=== PATIENT | male | born 1990 | race Caucasian/White ===

== ENCOUNTER 2018-10-18 10:24 | Emergency (ER) | payer SELFPAY ==
[2018-10-18 12:58] LABS: Absolute Lymphocytes (CBC) 1.2 K/uL (0.7-4.9); Absolute Monocytes 0.6 K/uL (0.1-1.3); Absolute Neutrophil 5.7 K/uL (1.8-8.0); Basophils % 0.6 % (0-1.3); Eosinophils % 0.1 % (0-4.4); Hematocrit 43.3 % (39.6-49.0); Lymphocytes % 15.9 % (15.3-44.8); Monocytes % 7.9 % (3.3-12.3); RBC Red Blood Cell Count 4.95 M/uL (4.33-5.43)
[2018-10-18 12:59] LABS: ALT/SGPT 25 U/L (12-78); AST/SGOT 18 U/L (15-37); Albumin 3.9 g/dL (3.4-5.0); Alkaline Phosphatase 88 U/L (45-117); BUN Blood Urea Nitrogen 11 mg/dL (7-18); Bicarbonate 25 mmol/L (21-32); Bilirubin Direct 0.2 mg/dL (0-0.2); Bilirubin Total 0.4 mg/dL (0.2-1.0); Glucose Level 106 mg/dL (74-106); Lipase 67 U/L (73-393); Potassium 3.6 mmol/L (3.5-5.1); Protein, Total 7.2 g/dL (6.4-8.2); Sodium Level 143 mmol/L (136-145)
[2018-10-18] MEDS ORDERED: PANTOPRAZOLE 40 MG INJ ONE (13:00)
--- NOTE | 2018-10-18 13:25 | RAD REPORT ---
EXAM DESCRIPTION: CT - Abdomen Pelvis Wo Contrast - 10/18/2018 1:20 pm CLINICAL HISTORY: Abdominal pain. no iv or oral contrast;Abd pain COMPARISON: No comparisons TECHNIQUE: CT imaging of the abdomen and pelvis was performed without contrast. Solid organ, bowel a nd vascular assessment is limited due to lack of IV and oral contrast. All CT scans are performed using dose optimization technique as appropriate and may include automated exposure control or mA/KV adjustment according to patient size. FINDINGS: The lower lung gifford are clear. The liver, spleen, pancreas, adrenal glands and kidneys are within normal limits for a limited non-co ntrast examination. No bowel obstruction, free air, free fluid or abscess. The appendix is normal. The osseous structures are within normal limits. IMPRESSION: No acute intra-abdominal or pelvic findings. A limited non-contrast examination was performed as detailed.
[2018-10-18] MEDS ORDERED: MAGNE/ALUM HYDROXD 30 ML UCUP ONE (13:37)
--- NOTE | 2018-10-18 13:37 | ER ---
Nurse's Notes [facility] Name: Tremaine Roberson Age: 28 yrs Sex: Male : 1990 Arrival Date: 10/18/2018 Time: 10:27 Bed 5 Private MD: Diagnosis: Epigastric pain;Gastritis, unspecified Presentation: 10/18 10:37 Presenting complaint: Patient states: hemoptysis, bright yellow vomit x 4 days, abd sv pain. Transition of care: patient was not received from another setting of care. Onset of symptoms was October 14, 2018. Care prior to arrival: None. 10:37 Method Of Arrival: Ambulatory sv 10:37 Acuity: TARSHA 3 sv 12:50 Risk Assessment: Do you want to hurt yourself or someone else? Patient reports no iw desire to harm self or others. Initial Sepsis Screen: Does the patient meet any 2 criteria? No. Patient's initial sepsis screen is negative. Does the patient have a suspected source of infection? No. Patient's initial sepsis screen is negative. Triage Assessment: 10:39 General: Appears in no apparent distress. uncomfortable, slender, Behavior is calm, sv cooperative, appropriate for age. Pain: Complains of pain in abdomen Pain currently is 5 out of 10 on a pain scale. Neuro: Level of Consciousness is awake, alert, obeys commands, Oriented to person, place, time, situation, Gait is steady. Respiratory: Respiratory effort is even, unlabored, Respiratory pattern is regular, symmetrical. GI: Reports nausea, vomiting. Historical: - Allergies: 10:38 Iodine; sv 10:38 PENICILLINS; sv - PMHx: 10:38 None; sv - PSHx: 10:38 None; sv - Immunization history:: Flu vaccine is not up to date. - Social history:: Smoking status: Patient uses tobacco products, smokes one-half pack cigarettes per day. - Ebola Screening: : No symptoms or risks identified at this time. Screenin:07 Abuse screen: Denies threats or abuse. Denies injuries from another. Nutritional iw screening: No deficits noted. Tuberculosis screening: No symptoms or risk factors identified. Fall Risk None identified. Assessment: 12:50 General: Appears in no apparent distress. Behavior is calm. Pain: Complains of pain in iw epigastric area Pain currently is 7 out of 10 on a pain scale. Pain began one month ago. Neuro: Level of Consciousness is awake, alert, obeys commands, Oriented to person, place, time, situation, Moves all extremities. Cardiovascular: Patient's skin is warm and dry. Respiratory: Airway is patent Respiratory effort is even, unlabored. GI: Bowel sounds present X 4 quads. Abd is soft X 4 quads Reports upper abdominal pain, epigastric pain. : No signs and/or symptoms were reported regarding the genitourinary system. Derm: Skin is intact, is healthy with good turgor. Musculoskeletal: Range of motion: intact in all extremities. Vital Signs: 10:38 BP 144 / 71; Pulse 78; Resp 20; Temp 99.1; Weight 77.11 kg; Height 6 ft. 1 in. (185.42 sv cm); 10:38 Body Mass Index 22.43 (77.11 kg, 185.42 cm) sv ED Course: 10:27 Patient arrived in ED. mr 10:38 Triage completed. sv 10:39 Arm band placed on. sv 10:40 Patient has correct armband on for positive identification. iw 11:51 Gallo Carvajal PA is PHCP. jr8 11:51 Silvano Farrell MD is Attending Physician. jr8 12:45 Initial lab(s) drawn, by me, sent to lab. Inserted saline lock: 20 gauge in right iw antecubital area, using aseptic technique. Blood collected. 12:46 Daniela Pena, RN is Primary Nurse. iw 13:20 CT Abd/Pelvis - Without Cont In Process Unspecified. EDMS 13:36 Andrea Najera MD is Referral Physician. jr8 14:43 No provider procedures requiring assistance completed. IV discontinued, intact, iw bleeding controlled, No redness/swelling at site. Pressure dressing applied. Administered Medications: 12:50 Drug: ProTONIX 40 mg Route: IVP; Site: right antecubital; iw 13:59 Drug: Demerol 25 mg Route: IVP; Site: right antecubital; sg 14:00 Not Given (Patient Refused): GI Cocktail without - (Maalox Suspension 30 ml, sg Lidocaine Liquid 2 % 15 ml) PO once 14:00 Drug: Zofran 4 mg Route: IVP; Site: right antecubital; sg Outcome: 13:36 Discharge ordered by MD. jr8 14:43 Discharged to home ambulatory, with family. iw 14:43 Condition: good 14:43 Discharge instructions given to patient, family, Instructed on discharge instructions, follow up and referral plans. medication usage, Demonstrated understanding of instructions, follow-up care, medications, Prescriptions given X 1. 14:44 Patient left the ED. sg Signatures: Dispatcher [employer] Patti Aggarwal RN RN Donny Hong RN RN Vonda Franco mr Daniela Pena RN RN Gallo Carvajal, KYLE WRIGHT jr8 Corrections: (The following items were deleted from the chart) 10:40 10:38 Resp 20bpm; Temp 99.1F; 77.11 kg; Height 6 ft. 1 in.; BMI: 22.4; [facility]
--- NOTE | 2018-10-18 13:37 | EDPHYS ---
Physician Documentation [facility] Name: Tremaine Roberson Age: 28 yrs Sex: Male : 1990 Arrival Date: 10/18/2018 Time: 10:27 Bed 5 Private MD: ED Physician Silvano Farrell HPI: 10/18 12:59 This 28 yrs old Male presents to ER via Ambulatory with complaints of jr8 Abdominal Pain, Vomiting. 12:59 The patient presents with abdominal pain in the epigastric area. Onset: The jr8 symptoms/episode began/occurred gradually, 1 month(s) ago, and became worse. The symptoms do not radiate. Associated signs and symptoms: Pertinent positives: nausea and vomiting, vomiting blood. The symptoms are described as stabbing. Modifying factors: The symptoms are alleviated by nothing, the symptoms are aggravated by food. Severity of pain: At its worst the pain was moderate in the emergency department the pain is unchanged. The patient has not experienced similar symptoms in the past. The patient has not recently seen a physician. Historical: - Allergies: 10:38 Iodine; sv 10:38 PENICILLINS; sv - PMHx: 10:38 None; sv - PSHx: 10:38 None; sv - Immunization history:: Flu vaccine is not up to date. - Social history:: Smoking status: Patient uses tobacco products, smokes one-half pack cigarettes per day. - Ebola Screening: : No symptoms or risks identified at this time. ROS: 12:59 Eyes: Negative for injury, pain, redness, and discharge, ENT: Negative for injury, jr8 pain, and discharge, Neck: Negative for injury, pain, and swelling, Cardiovascular: Negative for chest pain, palpitations, and edema, Respiratory: Negative for shortness of breath, cough, wheezing, and pleuritic chest pain, Back: Negative for injury and pain, MS/Extremity: Negative for injury and deformity, Skin: Negative for injury, rash, and discoloration, Neuro: Negative for headache, weakness, numbness, tingling, and seizure. 12:59 Abdomen/GI: Positive for abdominal pain, nausea and vomiting, coffee ground emesis , Negative for diarrhea, constipation, abdominal cramps, abdominal distension. Exam: 12:59 Eyes: Pupils equal round and reactive to light, extra-ocular motions intact. Lids and jr8 lashes normal. Conjunctiva and sclera are non-icteric and not injected. Cornea within normal limits. Periorbital areas with no swelling, redness, or edema. ENT: Nares patent. No nasal discharge, no septal abnormalities noted. Tympanic membranes are normal and external auditory canals are clear. Oropharynx with no redness, swelling, or masses, exudates, or evidence of obstruction, uvula midline. Mucous membranes moist. Neck: Trachea midline, no thyromegaly or masses palpated, and no cervical lymphadenopathy. Supple, full range of motion without nuchal rigidity, or vertebral point tenderness. No Meningismus. Cardiovascular: Regular rate and rhythm with a normal S1 and S2. No gallops, murmurs, or rubs. Normal PMI, no JVD. No pulse deficits. Respiratory: Lungs have equal breath sounds bilaterally, clear to auscultation and percussion. No rales, rhonchi or wheezes noted. No increased work of breathing, no retractions or nasal flaring. Back: No spinal tenderness. No costovertebral tenderness. Full range of motion. Skin: Warm, dry with normal turgor. Normal color with no rashes, no lesions, and no evidence of cellulitis. MS/ Extremity: Pulses equal, no cyanosis. Neurovascular intact. Full, normal range of motion. Neuro: Awake and alert, GCS 15, oriented to person, place, time, and situation. Cranial nerves II-XII grossly intact. Motor strength 5/5 in all extremities. Sensory grossly intact. Cerebellar exam normal. Normal gait. 12:59 Abdomen/GI: Inspection: abdomen appears normal, Bowel sounds: active, all quadrants, Palpation: soft, in all quadrants, moderate abdominal tenderness, in the epigastric area, mass, is not appreciated, rebound tenderness, is not appreciated, voluntary guarding, is not appreciated, involuntary guarding, is not appreciated, no appreciated organomegaly, Indicators: McBurney's point is not tender, Suarez's sign is negative, Rovsing's sign is negative, Liver: tenderness, is not appreciated. Vital Signs: 10:38 BP 144 / 71; Pulse 78; Resp 20; Temp 99.1; Weight 77.11 kg; Height 6 ft. 1 in. (185.42 sv cm); 10:38 Body Mass Index 22.43 (77.11 kg, 185.42 cm) sv MDM: 11:51 Patient medically screened. jr8 13:34 Differential diagnosis: cholecystitis, Cholelithiasis, diverticulitis, gastritis, jr8 gastroesophageal reflux disease, Irritable bowel syndrome, non-specific abd pain, pancreatitis, Peptic Ulcer Disease, Perf. Duodenal Ulcer, Perf. Gastric Ulcer. Data reviewed: vital signs, nurses notes, lab test result(s), radiologic studies, CT scan. Data interpreted: Pulse oximetry: on room air is 100 %. Interpretation: normal. 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 ED course: Discussed with patient that based on physical and how he describes his symptoms. Concerning for gastrits vs ulcer. Will put him on medicine for that and want him to see GI for endoscopy. Otherwise no other acute or concerning abdominal findings . 10/18 12:04 Order name: Basic Metabolic Panel; Complete Time: 13:04 10/18 12:04 Order name: CBC with Diff; Complete Time: 13:05 [facility] 10/18 12:04 Order name: Creatinine for Radiology; Complete Time: 13:04 [facility] 10/18 12:04 Order name: Hepatic Function; Complete Time: 13:04 [facility] 10/18 12:04 Order name: Lipase; Complete Time: 13:04 [facility] 10/18 13:05 Order name: CT Abd/Pelvis - Without Cont; Complete Time: 13:34 [facility] 10/18 12:04 Order name: IV Saline Lock; Complete Time: 13:06 [facility] 10/18 12:04 Order name: Labs collected and sent; Complete Time: 13:06 [facility] Administered Medications: 12:50 Drug: ProTONIX 40 mg Route: IVP; Site: right antecubital; iw 13:59 Drug: Demerol 25 mg Route: IVP; Site: right antecubital; sg 14:00 Not Given (Patient Refused): GI Cocktail without - (Maalox Suspension 30 ml, sg Lidocaine Liquid 2 % 15 ml) PO once 14:00 Drug: Zofran 4 mg Route: IVP; Site: right antecubital; sg Disposition: 16:53 Co-signature as Attending Physician, Silvano Farrell MD I agree with the assessment and kendall plan of care. Disposition: 10/18/18 13:36 Discharged to Home. Impression: Epigastric pain, Gastritis, unspecified. - Condition is Stable. - Discharge Instructions: Abdominal Pain, Adult, Gastritis, Adult, Peptic Ulcer. - Prescriptions for Carafate 1 gram Oral Tablet - take 1 tablet by ORAL route 4 times per day take on an empty stomach, beginning on waking and last dose at bedtime; 100 tablet. - Medication Reconciliation Form, Thank You Letter, Antibiotic Education, Prescription Opioid Use form. - Follow up: Andrea Najera MD; When: 2 - 3 days; Reason: Recheck today's complaints, Continuance of care, Re-evaluation by your physician. - Problem is new. - Symptoms have improved. Signatures: Dispatcher [employer] Patti Aggarwal RN RN sv Gay, Steven, RN RN sg Anderson, Corey, MD MD cha Williams, Irene, RN RN iw Roszak, Josh, PA PA jr8 Corrections: (The following items were deleted from the chart) 14:44 13:36 10/18/2018 13:36 Discharged to Home. Impression: Epigastric pain; Gastritis, sg unspecified. Condition is Stable. Forms are Medication Reconciliation Form, Thank You Letter, Antibiotic Education, Prescription Opioid Use. Follow up: Andrea Najera; When: 2 - 3 days; Reason: Recheck today's complaints, Continuance of care, Re-evaluation by your physician. Problem is new. Symptoms have improved. jr8
[2018-10-18] MEDS ORDERED: LIDOCAINE VISCOUS 2% SOLN 15 ML UDC ONE (13:38)
[2018-10-18] MEDS ORDERED: MEPERIDINE HCL 25 MG/0.5 ML ONE (14:08)
[2018-10-18] MEDS ORDERED: ONDANSETRON 4 MG/2 ML VIAL ONE (14:08)
== END 2018-10-18 14:44 | disposition home or self-care (01) ==
LOC: ER 10:24
DX: K29.70 Gastritis, unspecified, without bleeding (principal); F17.210 Nicotine dependence, cigarettes, uncomplicated; Z88.0 Allergy status to penicillin; Z91.048 Other nonmedicinal substance allergy status
CPT/HCPCS: 36415; 74176; 80048; 80076; 83690; 85025; 96374; 96375; 99284; C9113; J2175; J2405

== ENCOUNTER 2020-10-02 01:18 | Emergency (ER) | payer SELFPAY ==
[2020-10-02] MEDS ORDERED: LIDOCAINE 1% W/EPI 1:100,000 MDV 50 ML VIAL ONE (01:44)
--- NOTE | 2020-10-02 02:31 | EDPHYS ---
Physician Documentation [facility] Name: Tremaine Roberson Age: 29 yrs Sex: Male : 1990 Arrival Date: 10/02/2020 Time: 01:19 Bed 19 Private MD: JT Physician Silvano Farrell HPI: 10/02 02:19 This 29 yrs old Male presents to ER via EMS with complaints of Laceration To kendall Wrist. 02:19 The patient or guardian reports decreased range of motion, pain, swelling, tenderness. kendall The complaints affect the right wrist diffusely. Context: The problem was sustained at home. Onset: The symptoms/episode began/occurred just prior to arrival. Modifying factors: The symptoms are alleviated by holding still, pressure to area, the symptoms are aggravated by movement, dependent position. Associated signs and symptoms: The patient has no apparent associated signs or symptoms. Compartment Syndrome negative for numbness, pain, tingling. The patient has not experienced similar symptoms in the past. Historical: - Allergies: 01:24 Iodine; ll2 01:24 PENICILLINS; ll2 - PMHx: 01:24 None; ll2 - Immunization history:: Adult Immunizations up to date. - Social history:: Smoking status: Patient uses weed. - Family history:: not pertinent. ROS: 02:19 Constitutional: Negative for fever, chills, and weight loss, Eyes: Negative for injury, kendall pain, redness, and discharge, ENT: Negative for injury, pain, and discharge, Neck: Negative for injury, pain, and swelling, Cardiovascular: Negative for chest pain, palpitations, and edema, Respiratory: Negative for shortness of breath, cough, wheezing, and pleuritic chest pain, Abdomen/GI: Negative for abdominal pain, nausea, vomiting, diarrhea, and constipation, Back: Negative for injury and pain, : Negative for injury, bleeding, discharge, and swelling, Skin: Negative for injury, rash, and discoloration, Neuro: Negative for headache, weakness, numbness, tingling, and seizure, Psych: Negative for depression, anxiety, suicide ideation, homicidal ideation, and hallucinations, Allergy/Immunology: Negative for hives, rash, and allergies, Endocrine: Negative for neck swelling, polydipsia, polyuria, polyphagia, and marked weight changes. 02:19 MS/extremity: Positive for decreased range of motion, pain, tenderness, of the palmar aspect of right wrist. Exam: 02:19 Constitutional: This is a well developed, well nourished patient who is awake, alert, kendall and in no acute distress. Head/Face: Normocephalic, atraumatic. Eyes: Pupils equal round and reactive to light, extra-ocular motions intact. Lids and lashes normal. Conjunctiva and sclera are non-icteric and not injected. Cornea within normal limits. Periorbital areas with no swelling, redness, or edema. ENT: Nares patent. No nasal discharge, no septal abnormalities noted. Tympanic membranes are normal and external auditory canals are clear. Oropharynx with no redness, swelling, or masses, exudates, or evidence of obstruction, uvula midline. Mucous membranes moist. Neck: Trachea midline, no thyromegaly or masses palpated, and no cervical lymphadenopathy. Supple, full range of motion without nuchal rigidity, or vertebral point tenderness. No Meningismus. Chest/axilla: Normal chest wall appearance and motion. Nontender with no deformity. No lesions are appreciated. Cardiovascular: Regular rate and rhythm with a normal S1 and S2. No gallops, murmurs, or rubs. Normal PMI, no JVD. No pulse deficits. Respiratory: Lungs have equal breath sounds bilaterally, clear to auscultation and percussion. No rales, rhonchi or wheezes noted. No increased work of breathing, no retractions or nasal flaring. Abdomen/GI: Soft, non-tender, with normal bowel sounds. No distension or tympany. No guarding or rebound. No evidence of tenderness throughout. Back: No spinal tenderness. No costovertebral tenderness. Full range of motion. Skin: Warm, dry with normal turgor. Normal color with no rashes, no lesions, and no evidence of cellulitis. Neuro: Awake and alert, GCS 15, oriented to person, place, time, and situation. Cranial nerves II-XII grossly intact. Motor strength 5/5 in all extremities. Sensory grossly intact. Cerebellar exam normal. Normal gait. Psych: Awake, alert, with orientation to person, place and time. Behavior, mood, and affect are within normal limits. 02:19 Musculoskeletal/extremity: Extremities: grossly normal except: noted in the palmar aspect of right wrist: laceration, ROM: limited active range of motion due to pain, limited passive range of motion due to pain, Circulation is intact in all extremities. Sensation intact. Compartment Syndrome exam of affected extremity: is normal. DVT Exam: no swelling, negative Homans' sign noted on exam, no appreciated bluish discoloration, no erythema, no increased warmth, pain, tenderness. Vital Signs: 01:20 BP 141 / 85; Pulse 94; Resp 22; Temp 97.8; Pulse Ox 100% on R/A; Weight 81.65 kg; ll2 Height 6 ft. 1 in. (185.42 cm); Pain 8/10; 01:26 BP 141 / 85; Pulse 94; Resp 20; Temp 97.8; Pulse Ox 100% on R/A; ll2 01:20 Body Mass Index 23.75 (81.65 kg, 185.42 cm) ll2 Laceration: 02:26 Wound Repair of 3cm ( 1.2in ) subcutaneous laceration to palmar aspect of right wrist. kendall Irregularly shaped.. Distal neuro/vascular/tendon intact. Anesthesia: Local anesthetic administered with 6 mls of 1% lidocaine w/ Epi. Wound prep: Moderate cleansing by me, Copious irrigation. Skin closed with 3 5-0 Prolene using vertical mattress sutures and sterile technique. Dressed with Neosporin, non-adherent dressing. Patient tolerated well. MDM: 01:25 Patient medically screened. kendall 01:25 Patient medically screened. kendall 02:26 Differential diagnosis: closed fracture. Data reviewed: vital signs, nurses notes, [facility] radiologic studies, plain films. Data interpreted: automation specialist: rate is 94 beats/min, rhythm is regular, Pulse oximetry: on. Test interpretation: by ED physician or midlevel provider: plain radiologic studies. Counseling: I had a detailed discussion with the patient and/or guardian regarding: the historical points, exam findings, and any diagnostic results supporting the discharge/admit diagnosis, radiology results, the need for outpatient follow up, for definitive care, a hand specialist. 10/02 01:29 Order name: Wrist Right 3 View XRAY [facility] 10/02 01:29 Order name: Dressing - Wound; Complete Time: 02:43 [facility] 10/02 01:29 Order name: Gloves, Sterile; Complete Time: 02:43 [facility] 10/02 01:29 Order name: Setup Suture Tray; Complete Time: 02:43 kendall 10/02 02:18 Order name: Splint - Volar Wrist Splint; Complete Time: :43 [facility] Administered Medications: 01:55 Drug: Lidocaine-Epinephrine -1%: (1:100,000) 10 ml {Note: administered by Dr. stacy Farrell.} Volume: 20 ml; Route: Infiltration; :43 Drug: Neosporin Ointment 1 application Route: Topical; Site: affected area; ll2 03:01 Follow up: Response: No adverse reaction ll2 03:00 Drug: Melbeta 10 mg-325 mg 1 tabs Route: PO; ll2 03:00 Follow up: Response: No adverse reaction; Medication administered at discharge. ll2 Disposition: 10/02/20 02:30 Discharged to Home. Impression: Laceration without foreign body of right wrist - WITH FLEXOR TENDON INVOLVMENT. - Condition is Stable. - Discharge Instructions: Laceration Care, Adult, Laceration Care, Adult, [id number]. - Prescriptions for Ibuprofen 600 mg Oral Tablet - take 1 tablet by ORAL route every 6 hours As needed take with food; 20 tablet. Bactrim DS 800- 160 mg Oral Tablet - take 1 tablet by ORAL route every 12 hours for 10 days; 20 tablet. - Medication Reconciliation Form, Thank You Letter, Antibiotic Education, Prescription Opioid Use form. - Follow up: Private Physician; When: 2 - 3 days; Reason: Recheck today's complaints, Continuance of care, Re-evaluation by your physician. Follow up: Delio Stanley MD; When: 1 - 2 days; Reason: Recheck today's complaints, Re-evaluation by your physician. - Problem is new. - Symptoms have improved. Signatures: Dispatcher [employer] EDME Silvano Farrell MD MD cha [place], Lacie RN RN ll2 Corrections: (The following items were deleted from the chart) 03:04 02:30 10/02/2020 02:30 Discharged to Home. Impression: Laceration without foreign body ll2 of right wrist - WITH FLEXOR TENDON INVOLVMENT. Condition is Stable. Forms are Medication Reconciliation Form, Thank You Letter, Antibiotic Education, Prescription Opioid Use. Follow up: Private Physician; When: 2 - 3 days; Reason: Recheck today's complaints, Continuance of care, Re-evaluation by your physician. Follow up: Delio Stanley; When: 1 - 2 days; Reason: Recheck today's complaints, Re-evaluation by your physician. Problem is new. Symptoms have improved. kendall
--- NOTE | 2020-10-02 02:31 | ER ---
Nurse's Notes [facility] Name: Tremaine Roberson Age: 29 yrs Sex: Male : 1990 Arrival Date: 10/02/2020 Time: 01:19 Bed 19 Private MD: Diagnosis: Laceration without foreign body of right wrist-WITH FLEXOR TENDON INVOLVMENT Presentation: 10/02 01:20 Chief complaint: EMS states: pt states he was trying to open a window by leaning on it ll2 when it cracked and broke, 10 cm lac to right wrist reported by ems. pt denies suicidal ideation or attempt to harm himself. Coronavirus screen: Client denies travel out of the [place] in the last 14 days. At this time, the client does not indicate any symptoms associated with coronavirus-19. Ebola Screen: Patient negative for fever greater than or equal to 101.5 degrees Fahrenheit, and additional compatible Ebola Virus Disease symptoms. Initial Sepsis Screen: Does the patient meet any 2 criteria? No. Patient's initial sepsis screen is negative. Does the patient have a suspected source of infection? No. Patient's initial sepsis screen is negative. Risk Assessment: Do you want to hurt yourself or someone else? Patient reports no desire to harm self or others. Onset of symptoms was October 02, 2020. 01:20 Method Of Arrival: EMS: [facility] 01:20 Acuity: TARSHA 3 ll2 Triage Assessment: 01:24 General: Appears uncomfortable, Behavior is cooperative, appropriate for age. Pain: ll2 Complains of pain in right hand. EENT: No signs and/or symptoms were reported regarding the EENT system. Neuro: Level of Consciousness is awake, alert, obeys commands, Oriented to person, place, time, situation. Cardiovascular: Patient's skin is warm and dry. Respiratory: Airway is patent Respiratory effort is even, unlabored, Respiratory pattern is regular, symmetrical. GI: No signs and/or symptoms were reported involving the gastrointestinal system. : No signs and/or symptoms were reported regarding the genitourinary system. Derm: Skin has skin tears on to right wrist. Musculoskeletal: Circulation, motion, and sensation intact. Range of motion: intact in all extremities. Historical: - Allergies: 01:24 Iodine; ll2 01:24 PENICILLINS; ll2 - PMHx: 01:24 None; ll2 - Immunization history:: Adult Immunizations up to date. - Social history:: Smoking status: Patient uses weed. - Family history:: not pertinent. Screenin:26 Abuse screen: Denies threats or abuse. Nutritional screening: No deficits noted. ll2 Tuberculosis screening: No symptoms or risk factors identified. Fall Risk None identified. Assessment: :25 Reassessment: see triage assessment. ll2 03:03 Reassessment: Patient and/or family updated on plan of care and expected duration. Pain ll2 level reassessed. Patient is alert, oriented x 3, equal unlabored respirations, skin warm/dry/pink. Vital Signs: 01:20 BP 141 / 85; Pulse 94; Resp 22; Temp 97.8; Pulse Ox 100% on R/A; Weight 81.65 kg; ll2 Height 6 ft. 1 in. (185.42 cm); Pain 8/10; 01:26 BP 141 / 85; Pulse 94; Resp 20; Temp 97.8; Pulse Ox 100% on R/A; ll2 01:20 Body Mass Index 23.75 (81.65 kg, 185.42 cm) ll2 ED Course: 01:19 Patient arrived in ED. cl3 01:20 Ema Rivera, TAMMI is Primary Nurse. ll2 01:23 Triage completed. ll2 01:25 Silvano Farrell MD is Attending Physician. kendall 01:26 Patient has correct armband on for positive identification. Bed in low position. Call ll2 light in reach. Side rails up X 1. Pulse ox on. NIBP on. 01:55 Wrist Right 3 View XRAY In Process Unspecified. EDMS 02:29 Delio Stanley MD is Referral Physician. kendall 03:03 No provider procedures requiring assistance completed. Patient did not have IV access ll2 during this emergency room visit. 03:04 Splint/sling/ice applied as appropriate. ll2 Administered Medications: 01:55 Drug: Lidocaine-Epinephrine -1%: (1:100,000) 10 ml {Note: administered by Dr. stacy Farrell.} Volume: 20 ml; Route: Infiltration; 02:43 Drug: Neosporin Ointment 1 application Route: Topical; Site: affected area; ll2 03:01 Follow up: Response: No adverse reaction ll2 03:00 Drug: [place] 10 mg-325 mg 1 tabs Route: PO; ll2 03:00 Follow up: Response: No adverse reaction; Medication administered at discharge. ll2 Outcome: 02:30 Discharge ordered by . kendall 03:03 Discharged to home ambulatory. ll2 03:03 Condition: stable 03:03 Discharge instructions given to patient, Instructed on discharge instructions, follow up and referral plans. medication usage, Demonstrated understanding of instructions, follow-up care, medications, Prescriptions given X 2. 03:04 Patient left the ED. ll2 Signatures: Dispatcher [employer] EDMS Silvano Farrell MD MD cha Lewis, Charde cl3 Ema Rivera, RN RN 2
[2020-10-02] MEDS ORDERED: SMZ./TMP. 800/160 MG TABLET ONE (03:04)
[2020-10-02] MEDS ORDERED: HYDROCODONE/APAP 10/325 TAB ONE (03:04)
[2020-10-02] MEDS ORDERED: TETANUS & DIPHTHERIA TOX,ADULT 0.5 ML VIAL ONE (03:05)
[2020-10-02 04:37] VITALS: BP 141/85; TEMP 97.8; O2SAT 100
--- NOTE | 2020-10-02 08:43 | RAD REPORT ---
EXAM DESCRIPTION: RAD - Wrist Right 3 View - 10/02/2020 1:55 am CLINICAL HISTORY: PAIN Pain COMPARISON: No comparisons FINDINGS: No fracture or dislocation seen. Laceration is seen along the palmar aspect of the wrist. No radiopaque foreign body evident.
== END 2020-10-02 03:04 | disposition home or self-care (01) ==
LOC: ER 01:18
PROC: 0JQG0ZZ Repair Right Lower Arm Subcutaneous Tissue and Fascia, Open Approach (ICD-10-PCS; principal; 2020-10-02)
DX: S66.921A Laceration of unspecified muscle, fascia and tendon at wrist and hand level, right hand, initial encounter (principal); W25.XXXA Contact with sharp glass, initial encounter; Y93.89 Activity, other specified; Y92.009 Unspecified place in unspecified non-institutional (private) residence as the place of occurrence of the external cause; Z88.0 Allergy status to penicillin; Z91.048 Other nonmedicinal substance allergy status
CPT/HCPCS: 90714; 99284

== ENCOUNTER 2021-07-03 12:20 | Emergency (ER) | payer SELFPAY ==
--- NOTE | 2021-07-03 13:24 | ER ---
Nurse's Notes [facility] Name: Tremaine Roberson Age: 30 yrs Sex: Male : 1990 Arrival Date: 07/03/2021 Time: 12:22 Bed Waiting Private MD: Diagnosis: ED Course: 07/03 12:22 Patient arrived in ED. kc5 12:49 Patient's name was called from ER lobby. No response. Unable to locate patient. Will jl7 disposition as left without being seen by a provider. 13:00 Patient's name was called from ER lobby. No response. Unable to locate patient. Will jl7 disposition as left without being seen by a provider. 13:17 Patient's name was called from ER lobby. No response. Unable to locate patient. Will jl7 disposition as left without being seen by a provider. Administered Medications: No medications were administered Outcome: 13:23 Patient left the ED. jl7 Signatures: Collin Gonzalez RN RN jl7 Christel Bauman kc5
== END 2021-07-03 13:23 | disposition left against medical advice (07) ==
LOC: ER 12:20
DX: Z02.9 Encounter for administrative examinations, unspecified (principal)

== ENCOUNTER 2022-09-05 01:34 | Emergency (ER) | payer SELFPAY ==
[2022-09-05] MEDS ORDERED: NA CHLORIDE 0.9% 1,000 ML ONE (02:08)
[2022-09-05] MEDS ORDERED: FENTANYL CITR 100 MCG/2 ML ONE (02:08)
[2022-09-05 02:29] LABS: Absolute Lymphocytes (CBC) 1.2 K/uL (0.7-4.9); Hematocrit 38.9 % (39.6-49.0); Lymphocytes % 11.5 % (15.3-44.8); MCV 86.4 fL (80-100); MPV 8.2 fL (7.6-11.3); RBC Red Blood Cell Count 4.51 M/uL (4.33-5.43)
[2022-09-05 02:31] LABS: Protime INR 1.05
[2022-09-05 02:42] LABS: Potassium 3.7 mmol/L (3.5-5.1)
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
[2022-09-05] MEDS ORDERED: KETOROLAC 30 MG/ML INJ ONE (04:47)
[2022-09-05 04:59] VITALS: TEMP 97.6
[2022-09-05 05:02] VITALS: BP 120/73; O2SAT 100
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
== END 2022-09-05 04:54 | disposition home or self-care (01) ==
LOC: ER 01:34
DX: S06.0X0A Concussion without loss of consciousness, initial encounter (principal); M54.50 Low back pain, unspecified; Y04.8XXA Assault by other bodily force, initial encounter
CPT/HCPCS: 36415; 70450; 71045; 71250; 72125; 80048; 85025; 85610; 86850; 86900; 86901; 96374; 96375; 99284; J3010; J7030

== ENCOUNTER 2022-10-18 03:20 | Emergency (ER) | payer OTHER, SELFPAY ==
[2022-10-18 04:03] LABS: Absolute Lymphocytes (CBC) 1.9 K/uL (0.7-4.9); Hematocrit 41.9 % (39.6-49.0); Lymphocytes % 29.2 % (15.3-44.8); MCV 87.2 fL (80-100); MPV 8.1 fL (7.6-11.3)
[2022-10-18 04:09] LABS: Protime INR 1.13
[2022-10-18 04:30] LABS: ALT/SGPT 38 U/L (16-61); AST/SGOT 19 U/L (15-37); Albumin 4.5 g/dL (3.4-5.0); Alkaline Phosphatase 94 U/L (45-117); BUN Blood Urea Nitrogen 21 mg/dL (7-18); Bicarbonate 28 mEq/L (21-32); Bilirubin Direct < 0.1 mg/dL (0-0.2); Bilirubin Total 0.4 mg/dL (0.2-1.0); Glomerular Filtration Rate 91 ml/min (=/>90); Glucose Level 100 mg/dL (74-106); Potassium 3.5 mEq/L (3.5-5.1); Protein, Total 8.7 g/dL (6.4-8.2); Sodium Level 136 mEq/L (136-145)
[2022-10-18 04:32] LABS: SARS-CoV-2 Antigen Rapid Res Negative (Negative)
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
[2022-10-18 06:14] LABS: Urine Blood Negative (Negative); Urine Glucose Negative (Negative); Urine Protein Trace (Negative); Urine Specific Gravity >=1.030 (1.005-1.030); Urine pH 5.5 (5.0-7.0)
[2022-10-18 07:22] LABS: Barbiturates NEGATIVE (NEGATIVE); Benzodiazepines NEGATIVE (NEGATIVE); Cocaine POSITIVE (NEGATIVE); METHAMPHETAM POSITIVE (NEGATIVE); Methadone NEGATIVE (NEGATIVE); Opiates NEGATIVE (NEGATIVE); Phencyclidine NEGATIVE (NEGATIVE); THC Cannibis NEGATIVE (NEGATIVE)
[2022-10-18 13:30] VITALS: BP 105/59; TEMP 98; O2SAT 99
--- NOTE | 2022-10-19 17:37 | EKG ---
Test Date: 2022-10-18 Test Time: 04:05:11 Favor Maker: CHANEL MEASUREMENT RESULTS: Intervals: Rate: 75 [place]: 140 QRSD: 92 QT: 352 QTc: 393 [place]: P: 63 [place]: 140 QRS: 85 T: 49 INTERPRETIVE STATEMENTS: Normal sinus rhythm with sinus arrhythmia Normal ECG No previous ECG available for comparison Electronically Signed On 10-19-22 17:35:37 CDT by Fer Duncan
== END 2022-10-18 11:02 ==
LOC: ER 03:20
DX: R45.851 Suicidal ideations (principal); F15.10 Other stimulant abuse, uncomplicated; F41.9 Anxiety disorder, unspecified; F32.A Depression, unspecified; F43.10 Post-traumatic stress disorder, unspecified; F31.9 Bipolar disorder, unspecified; Z88.0 Allergy status to penicillin; Z88.8 Allergy status to other drugs, medicaments and biological substances; F17.290 Nicotine dependence, other tobacco product, uncomplicated
CPT/HCPCS: 93005; 85025; 80048; 36415; 85610; 80076; 85730; 81003; 80307; 99285; 87811; G0480 ×3